=== PATIENT | female | born 1965 | race Caucasian/White ===

== ENCOUNTER 2018-11-20 08:38 | Day surgery (SDC) | payer OTHER ==
[~2018-11-20] VITALS: Ht 157.5 cm; Wt 98.9 kg
[~2018-11-20 08:38] MED LIST: BENAZEPRIL HCL20 MG PO; ESTRACE0.5 MG PO; K-TAB10 MEQ PO; LOTENSIN20 MG PO; NORCO 5-325 TA1 EACH PO; NORVASC10 MG PO
[2018-11-20] MEDS ORDERED: SPIRONOLACTONE25 MG PO (09:09)
--- NOTE | 2018-11-20 11:05 | NUR ---
11/20/18 1105 Klarissa Gilliam 1101 PATIENT ARRIVES TO PACU AWAKE, BUT DROWSY. RESP EVEN AND UNLABORED, ROOM AIR SATS >90%. PATIENT REPOSITIONS SELF TO BACK. PASSING GAS. DENIES PAIN OR NAUSEA.
--- NOTE | 2018-11-21 10:35 | OR ---
[facility] [address] [place], [place] [address] Signed DATE OF OPERATION: 11/20/2018 SURGEON: Ashlie Miranda MD PREOPERATIVE DIAGNOSIS: Diarrhea alternating with constipation most dominantly diarrhea. POSTOPERATIVE DIAGNOSIS: Polyps x2. No evidence of colitis. PROCEDURE PERFORMED: Total colonoscopy to cecum with cold morcellation polypectomy x2 and biopsy of cecum and rectum. ANESTHESIA: Intravenous sedation, fentanyl 150 mcg, and Versed 8 mg. INDICATION: This 53-year-old white woman is a patient of TODD Cosme. 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 She has had complaints of diarrhea alternating with constipation, more dominantly diarrhea, however. She has had no blood per rectum. She has not had evaluation in the past. She does have history of thyroidectomy and cholecystectomy in 2003. Colonoscopy has been recommended on the basis of her symptoms. The risks of bleeding, infection, and perforation related to colonoscopy was reviewed with her. She understands and wished to proceed with colonoscopy. FINDINGS: The prep was quite good. Complete colonoscopy was undertaken to the cecum without question. There were 2 small polyps, one in the cecum, one in the ascending colon, both excised with cold morcellation technique. The remaining colon was normal. Biopsies were obtained of the cecum and rectum to assess for occult colitis. DESCRIPTION OF PROCEDURE: The patient was brought to the endoscopy suite and placed in lateral decubitus position given intravenous sedation to the point of slurred speech and nystagmus. Digital rectal examination was normal. Then, Olympus video colonoscope was passed in the rectum and manipulated throughout the colon ultimately intubating the cecum itself. A small polyp was noted there for which Electronically Signed By: ASHLIE MIRANDA MD 11/21/18 1035 PATIENT NAME: CARMELO DONALDSON OPERATIVE REPORT DATE OF : 67 REPORT #: [id number] PHYSICIAN: ASHLIE MIRANDA MD PCP: CORY DUNLAP REPORT IS CONFIDENTIAL AND NOT TO BE RELEASED WITHOUT AUTHORIZATION [facility] [address] [place], [place] [address] Signed cold morcellation polypectomy was undertaken. Biopsies were taken of the cecum as well though the cecum appeared normal. Otherwise, the scope was carefully withdrawn and at the mid ascending colon, there was another small polyp. These too were excised with cold morcellation technique. Further withdrawal of scope showed no sign of abnormality including the rectum. Biopsies were obtained of the rectum to assess for occult colitis. Retroflexed view was normal. Scope was removed and the patient was taken to recovery room in good condition. CONCLUDING DIAGNOSIS: No clear evidence of lesion to account for diarrhea or constipation at this point. Consideration may be made for a post cholecystectomy type diarrhea, though her cholecystectomy was distant in the past. We will initiate Questran 4 g p.o. q.i.d. tapering to the lowest effective dose, so as to avoid constipation. She will return to see us in 6 weeks and we will review her pathology reports and her clinical course at that time. A bulk agent such as Citrucel may be a consideration as well. MD JEANNIE Zamudio/COREY /[id number] cc: TODD Chew Copies: CORY DUNLAP ~ Electronically Signed By: ASHLIE MIRANDA MD 11/21/18 1035 PATIENT NAME: CARMELO DONALDSON OPERATIVE REPORT DATE OF : 67 REPORT #: [id number] PHYSICIAN: ASHLIE MIRANDA MD PCP: CORY DUNLAP REPORT IS CONFIDENTIAL AND NOT TO BE RELEASED WITHOUT AUTHORIZATION
--- NOTE | 2018-11-23 14:23 | PATH ---
[facility] [address] [facility] [place], [place] [address] Signed SPECIMEN(S): A CECUM SPECIMEN(S): B CECUM POLYP SPECIMEN(S): C COLON NOS POLYP RT SPECIMEN(S): D RECTUM SPECIMEN SOURCE: A. CECUM B. CECUM POLYP C. COLON NOS POLYP RT D. RECTUM CLINICAL HISTORY: Chronic diarrhea. MICROSCOPIC DESCRIPTION: Histologic sections of all submitted blocks are examined by light microscopy. These findings, together with the gross examination, support the pathologic diagnosis. FINAL PATHOLOGIC DIAGNOSIS: A. Cecum, biopsy: - Colonic mucosa with no histopathologic abnormality. B. Colon, cecum, polyp, polypectomy: - Hyperplastic polyp. - Negative for dysplasia or malignancy. C. Colon, polyp "RT," polypectomy: - Fragments of tubular adenoma. - Negative for high-grade dysplasia or malignancy. D. Rectum, biopsy: - Rectal mucosa with hyperplastic mucosal changes. - Negative for dysplasia or malignancy. COMMENT: The biopsies from the cecum and rectum show no cryptitis, crypt abscesses, crypt architectural distortion, basal lymphoplasmacytosis, granulomas, or viral cytopathic changes. LAD:smn:C2NR GROSS DESCRIPTION: Four specimens are received in four containers, labeled "LM." A. The specimen, labeled "LM, cecum biopsy," is received in formalin and consists of two andrews-white soft tissue fragments ranging from 0.1-0.2 cm in PATIENT NAME: CARMELO DONALDSON PATHOLOGY DATE OF : 67 REPORT #: [id number] PHYSICIAN: CHATO PATHOLOGY PCP: CORY DUNLAP REPORT IS CONFIDENTIAL AND NOT TO BE RELEASED WITHOUT AUTHORIZATION [facility] [address] [place], [place] [address] Signed greatest dimension. The specimen is entirely submitted in cassette (A1). B. The specimen, labeled "LM, cecum polyp," is received in formalin and consists of a 0.3 cm greatest dimension irregular andrews-white soft tissue fragment. The specimen is entirely submitted in cassette (B1). C. The specimen, labeled "LM, colon NOS polyp RT," is received in formalin and consists of two andrews-white soft tissue fragments each measuring 0.2 cm in greatest dimension. The specimen is entirely submitted in cassette (C1). D. The specimen, labeled "LM, rectum biopsy," is received in formalin and consists of two andrews-white soft tissue fragments each measuring 0.2 cm in greatest dimension. The specimen is entirely submitted in cassette (D1). AR (under the direct supervision of a pathologist) The Gross Description was prepared using a voice recognition system. The report was reviewed for accuracy; however, sound-alike word errors, addition and/or deletions may occur. If there is any question about this report, please contact Client Services. PERFORMING LABORATORY: The technical component was performed by [employer] [address] [place] [id number] (Shell Coremaker: Deborah Martin MD; CLIA# [id number]). Professional interpretation was performed by [employer], [address] [address] (Shell Coremaker: Ahsan Salinas MD; CLIA# [id number]). Diagnostician: Krista Woods MD Pathologist Electronically Signed 11/23/2018 Copies: ~ PATIENT NAME: CARMELO DONALDSON PATHOLOGY DATE OF : 67 REPORT #: [id number] PHYSICIAN: CHATO MENG PCP: CORY DUNLAP REPORT IS CONFIDENTIAL AND NOT TO BE RELEASED WITHOUT AUTHORIZATION
== END 2018-11-20 11:40 | disposition home or self-care (01) ==
LOC: OPS 08:38 → DS 08:38 → OPS 10:00 → DS 11:30 → OPS 11:40
PROVIDERS: Surgery
PROC: 0DBK8ZZ Excision of Ascending Colon, Via Natural or Artificial Opening Endoscopic (ICD-10-PCS; 2018-11-20)
PROC: 0DBH8ZX Excision of Cecum, Via Natural or Artificial Opening Endoscopic, Diagnostic (ICD-10-PCS; 2018-11-20)
PROC: 0DBP8ZX Excision of Rectum, Via Natural or Artificial Opening Endoscopic, Diagnostic (ICD-10-PCS; 2018-11-20)
PROC: 0DBH8ZZ Excision of Cecum, Via Natural or Artificial Opening Endoscopic (ICD-10-PCS; principal; 2018-11-20 10:00)
DX: D12.2 Benign neoplasm of ascending colon (principal); K63.5 Polyp of colon; K52.9 Noninfective gastroenteritis and colitis, unspecified; K59.00 Constipation, unspecified; I10 Essential (primary) hypertension; K21.9 Gastro-esophageal reflux disease without esophagitis; E03.9 Hypothyroidism, unspecified; E66.9 Obesity, unspecified; Z68.39 Body mass index [BMI] 39.0-39.9, adult; Z88.5 Allergy status to narcotic agent; Z91.018 Allergy to other foods; Z90.49 Acquired absence of other specified parts of digestive tract
CPT/HCPCS: 99153; G0500; J2250; J3010; J7120

== ENCOUNTER 2020-12-16 15:56 | Emergency (ER) | payer BC ==
[~2020-12-16] VITALS: Ht 157.5 cm; Wt 90.7 kg
[~2020-12-16 15:56] MED LIST changes: +SPIRONOLACTONE25 MG PO
[2020-12-16] MEDS ORDERED: ONDANSETRON ODT4 MG PO (17:14)
--- NOTE | 2020-12-17 14:41 | EKG ---
[facility] [address] [facility] [place] [address] Signed Normal sinus rhythm Nonspecific ST and T wave abnormality Abnormal ECG No previous ECGs available Confirmed by ADAM GALLEGOS MD ([id number]) on 12/17/2020 2:41:33 PM Electronically Signed By: ADAM GALLEGOS MD 12/17/20 1441 PATIENT NAME: CARMELO DONALDSON Electrocardiogram DATE OF : 67 PHYSICIAN: ADAM GALLEGOS MD REPORT #: [id number] REPORT IS CONFIDENTIAL AND NOT TO BE RELEASED WITHOUT AUTHORIZATION
== END 2020-12-16 17:24 | disposition home or self-care (01) ==
LOC: ED 15:56
DX: U07.1 COVID-19 (principal); R10.13 Epigastric pain; I10 Essential (primary) hypertension; E03.9 Hypothyroidism, unspecified; Z87.891 Personal history of nicotine dependence; Z88.5 Allergy status to narcotic agent; Z91.040 Latex allergy status; Z79.899 Other long term (current) drug therapy
CPT/HCPCS: 80053; 83690; 85025; 93005; 93010; 96374; 96375; 99284-25; C9803; J1885; J2405; J7030; U0003

== ENCOUNTER 2020-12-23 09:17 | Inpatient (IN) | payer BC ==
[~2020-12-23] VITALS: Ht 157.5 cm; Wt 91.5 kg
[~2020-12-23 09:17] MED LIST changes: +ONDANSETRON ODT4 MG PO
--- OUTSIDE RECORDS SUMMARY | 2020-12-23 09:24 | XMS ---
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 Kimberley has no Care Guidelines for this patient. E.D. VISIT COUNT (12 MO.) [facility] NOTE: Visits indicate total known visits. ED/UCC VISIT TRACKING (12 MO.) 12/23/2020 09:[address] [facility] [place] TYPE: Emergency COMPLAINT: - C+ 12/16/2020 15:[address] 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
[2020-12-23] MEDS ORDERED: LEXAPRO10 MG PO (09:32)
[2020-12-23] MEDS ORDERED: AMLODIPINE BESYL5 MG PO (12:02)
--- NOTE | 2020-12-23 12:13 | NUR ---
55 YEAR OLD FEMALE PATIENT ADMITTED TO CCU VIA STRETCHER UNDER DR. CHAMPAGNE WITH DX OF COVID 19, PNA,HYPOXIA,HYPOK K-2.9. UPON ADMIT PATIENT TO CCU PATIENT IS AWAKE,ALERT, COOPERATIVE. IS ON NRBM WITH SATS HIGH 90'S. AFTER TRANSFER TO BED FROM STRETCHER, O2 SAT DOWN TO MID 80'S. CPAP 100% FIO2 [id number], APPLIED. PATIENT IS ABLE TO TALK IN COMPLETE SENTENCES. ADMISSION PROCESS STARTED.
--- NOTE | 2020-12-23 12:30 | NUR ---
PATENT STATES SHE IS UNABLE TO TAKE PO KCL. DR. CHAMPAGNE AWARE, WILL INFUSE KCL VIA IV PER NEW ORDERS.
--- NOTE | 2020-12-23 13:15 | NUR ---
UP TO COMMODE TO VOID 600 ML OF CLEAR YELLOW URINE, ON CPAP WITH TRANSFER TO COMMODE AND BACK TO BED. HR UP TO 106, INCREASED SHORTNESS OF BREATH NOTED WITH MOVEMENT.
--- NOTE | 2020-12-23 14:00 | NUR ---
YATES PLACED W/O DIFFICULTY WITH RETURN OF CLEAR YELLOW URINE. PATIENT HAS BEEN TAKING SIPS OF CLEAR LIQUIDS, MOSTLY WATER. DENEIS PAIN. ENC TO USE CPAP. PATIENT PREFERS TO USE HIGH-FLOW O2 WITH NRBM. SECOND IV SITE STARTED TO RFA CURRENT IV IS IN LAC AND PATEINT CONTINUES TO BEND HER ARM. K-RIDER NOW INFUSING TO NEW IV SITED.
--- NOTE | 2020-12-23 14:15 | NUR ---
PATIENT NOT ABLE TO TOLERATED IV K+ INFUSNING TO RFA EVEN WITH THE RATE TURNED DOWN TO 75, THERFORE K RIDER INFUSING TO LAC.
--- NOTE | 2020-12-23 15:07 | NUR ---
HAS BEEN ON CPAP, HIGH FLOW NC AT 15 LITERS WITH EITHER OXYMASK OR NRBM. CURRENTLY IS USING NRBM ONLY O2 SATS 90. K RIDER INFUSING ORDERED. HOB IS ELEVATED.
--- NOTE | 2020-12-23 15:20 | NUR ---
BACK ON CPAP AT 80% FIO2, PRESSURE OF 10. YATES CATH PATENT WITH CLEAR YELLOW URINE NOTED.
--- NOTE | 2020-12-23 18:00 | NUR ---
REPOSITIONED. HOB ELEVATED TO TAKE CLEAR LIQUID FOR DINNER. NOW ON HIGH FLOW O2 NC AT 15 L. PATIENT STATES SHE FEEL LIKE SHE IS ABLE TO TOLERATE THE CPAP BETTER THAN SHE WAS EARLIER TODAY.
--- NOTE | 2020-12-23 18:48 | NUR ---
TOOK CLEAR LIQUIDS FAIR, CPAP REAPPLIED.
--- NOTE | 2020-12-23 20:25 | NUR ---
SHIFT REPORT RECEIVED FROM ANGELIA SPANGLER. PT IS ALERT/ORIENTED, REPORTS 4/10 HEADACHE AND EPIGASTRIC PAIN, PRN TYLENOL GIVEN. LUNGS HAVE CRACKLES THROUGHOUT, PT PLACED ON 15L HIGH FLOW NC WITH 15L NRB OVERTOP FOR ORAL CARE AND EVENING MEDS, OTHERWISE SHE IS ON CPAP 10 @ 80%. PT REPORTS SOB AT REST, RESPIRATIONS DO NOT APPEAR LABORED AT THIS TIME. PT HAS MOIST HACKING COUGH, PRN ROBITUSSIN AND TESSALON PERLES GIVEN. HR REGULAR. BOWEL TONES SLIGHTLY HYPOACTIVE, PT REPORTS NAUSEA, PRN ZOFRAN GIVEN. SKIN GROSSLY INTACT WITH EDEMA, CMS INTACT, PERIPHERAL PULSES STRONG. YATES PATENT, UO >QS, CATH CARE PROVIDED. POTASSIUM INFUSION COMPLETED, IV SITES SALINE LOCKED AND INTACT. PT DENIES FURTHER NEEDS AT THIS TIME, CALL LIGHT WITHIN REACH.
--- NOTE | 2020-12-23 23:11 | NUR ---
PT SITTING UP IN BED WATCHING TV. CPAP REMAINS IN PLACE, SETTINGS UNCHANGED. PT REPORTS PAIN IS RESOLVED. DENIES NEEDS AT THIS TIME, CALL LIGHT WITHIN REACH.
--- NOTE | 2020-12-24 | NUR ---
HEARD PT COUGHING FROM NURSE'S STATION, IN TO CHECK ON HER. SHE HAD REMOVED CPAP AND APPLIED HIGH FLOW NC AND NRB, BOTH AT 15L. PRN ROBITUSSIN GIVEN. PT REPORTS THAT SHE IS TIRED BUT UNABLE TO SLEEP AND ALSO REPORTS THAT CPAP MAKES HER FEEL ANXIOUS. DR. CHAMPAGNE NOTIFIED AND ORDERS RECEIVED FOR PRN VISTARIL AND DOSAGE CHANGES MADE TO PRN ROBITUSSIN AND TESSALON PERLES. ASSESSMENT COMPLETED, PT DENIES PAIN. CONTINUES TO HAVE CRACKLES IN LUNGS AND FEELS SOB AT REST. YATES REMAINS PATENT. IV SITES REMAIN INTACT AND SALINE LOCKED. PT ABLE TO PLACE CPAP BACK ON WITHOUT ASSISTANCE. DENIES FURTHER NEEDS AT THIS TIME. CALL LIGHT WITHIN REACH.
--- NOTE | 2020-12-24 01:38 | NUR ---
RECEIVED REPORT FROM CRYSTAL GALAN. pt RESTING IN BED WITH CPAP IN PLACE. EYES CLOSED, RESPIRATIONS REGULAR AND UNLABORED. CALL LIGHT WITHIN REACH.
--- NOTE | 2020-12-24 02:26 | NUR ---
SAT MONITOR OFF, ADJUSTED, pt WOKE BRIEFLY, CALL LIGHT WITHIN REACH. CPAP ON SAT 96%.
--- NOTE | 2020-12-24 03:15 | NUR ---
NOTED DROP IN O2 SAT, CPAP ALARMING. IN TO ASSESS. pt SHIVERING, PROVIDED WARM BLANKETS. pt REPORTED "SINCE I GOT COVID I'VE BEEN DOING THIS AT [facility], I JUST NEED SOME BLANKETS" NO FURTHER REQUESTS AT THIS TIME. HIGH FLOW NASAL CANNULA AND NRB IN PLACE. CALL LIGHT WITHIN REACH.
--- NOTE | 2020-12-24 04:04 | NUR ---
ASSESSED pt. pt REPORTS SHE IS FEELING "BETTER" BED BATH DONE. FRESH LINENS, YATES OUTPUT LIGHT YELLOW URINE. pt EDUCATED ON IMPORTANCE OF PRONING, ASSISTED TO SIDE LAYING POSITION. CPAP IN PLACE, 10 AND 80% FiO2. CRACKLES HEARD THROUGHOUT LUNGS. NO FURTHER REQUESTS AT THIS TIME. CALL LIGHT WITHIN REACH.
--- NOTE | 2020-12-24 05:35 | NUR ---
TITRATED FiO2 ON CPAP TO 60%. pt SATS MAINTAINED MID 90'S. CALL LIGHT WITHIN REACH.
--- NOTE | 2020-12-24 09:00 | NUR ---
ASSESSMENT DONE. OFF CPAP AT THIS TIME FOR CLEAR LIQUID BREAKFAST. WHEN TAKING PO, HIGH-FLOW O2 AND NRBM BOTH AT 15 LITERS PLACED. WHEN TAKING PO AND NEEDS TO LIFT NRBM YE DRING, O2 SATS GO TO LOW AT 78. PATIENT DENIES INCREASED SHORTNESS OF BREATH, NO INCREASE IN WORK OF BREATHING NOTED. HAS BEEN REPOSITIONED FOR BREAKFAST, TO BACK WITH HOB ELEVATED. TAKING ENSURE, JELLO AND JUICE. TALKED WITH PATIENT ABOUT POC, INDICATES UNDERSTANDING.
--- NOTE | 2020-12-24 09:25 | NUR ---
DAYANNA GARCIA (2) AND ROBITUSSIN 10 ML GIVEN FOR COUGH. HAS HARSH LOOSE COUGH.
--- NOTE | 2020-12-24 09:30 | NUR ---
CPAP 60% FIO2, PRESSURE 10, REAPPLIED. PRIOR TO CPAP REAPPLIED. PATIENT IS AWARE OF PLAN TO PRONE SOMETIME BEFORE NOON. IS VERY AGREEABLE.
--- NOTE | 2020-12-24 10:30 | NUR ---
PATIENT TO PRONE POSITION WITH ASSIST OF TWO STAFF. WITH PRONING, SAT UP TO 97 ON 60% FIO2, FIO2 DECREASED TO 50 AT THIS TIME. ENC PATIENT TO REMAIN IN PRONE POSITION FOR AT LEAST 2 HR. POSITION OF BED REVERSE TRENDELENBERG.
--- NOTE | 2020-12-24 12:18 | NUR ---
SLEEPING IN PRONE POSITION. ASSESSMENT HELD AT THIS TIME. RR-18, CPAP SETTINGS PRESSURE OF 10 FIO2 DECREASED TO 40. HR-56,BP AND TEMP NOT DONE PATIENT IS ASLEEP. WILL GIVE LEXAPRO WHEN WAKES.
--- NOTE | 2020-12-24 13:20 | NUR ---
AWAKE. TURNED TO BACK. OFF CPAP, NOW ON HIGH-FLOW NC 15 LITERS WITH NRBM AT 15 LITERS. TOLERATED PRONING VERY WELL. STATES SHE FEELS BETER. ASSESSMENT DONE. LUNCH ORDERED.
--- NOTE | 2020-12-24 14:10 | NUR ---
TOOK LUNCH WELL. AFTER EATING BACK ON CPAP. HOB ELEVATED.
--- NOTE | 2020-12-24 16:20 | NUR ---
ASSESSMENT DONE. PATIENT MORE TALKATIVE. DINNER ORDERED. CPAP AT 55% FIO2 PRESSURE OF 10 ON. PATIENT HAS BEEN USING CPAP MOST OF THE DAY.
--- NOTE | 2020-12-24 18:07 | NUR ---
TOOK DINNER WELL. STATES SHE IS FEELING BETTER.
--- NOTE | 2020-12-24 18:34 | NUR ---
YELLED OUT IN PAIN WHEN ATTEMPING TO REPOSITION PATIENT.
--- NOTE | 2020-12-24 18:51 | NUR ---
ON CPAP AT 55% FIO2 PRESSURE OF 10. HOB ELEVATED, WATCHING TV
--- NOTE | 2020-12-24 19:10 | NUR ---
NO CHANGES, REPORT TO NEXT SHIFT.
--- NOTE | 2020-12-24 19:30 | NUR ---
RECEIVED REPORT FROM ANGELIA SPANGLER. pt RESTING IN BED ON CPAP. DISCUSSED PLAN FOR THE NIGHT. NO NEEDS AT THIS TIME. CALL LIGHT WITHIN REACH.
--- NOTE | 2020-12-24 21:50 | NUR ---
IN TO DO ASSESSMENT. LUNGS CLEAR IN UPPERS, SOME CRACKLES HEARD IN BASES. YATES CARE DONE. BED BATH AND FRESH LINENS. pt HAD MATTED HAIR, TOLERATED 30+ MINUTES OF HAIR CARE WITH HIGH FLOW NASAL CANNULA AT 15L AND 15L NON REBREATHER NECESSARY. pt TALKED IN COMPLETE SENTENCES THE ENTIRE TIME. DENIED FEELING SHORT OF BREATH. RESTING ON LEFT SIDE ON CPAP. CALL LIGHT WITHIN REACH.
--- NOTE | 2020-12-25 01:30 | NUR ---
IN TO DO ASSESSMENT. COUGH MEDICATIONS GIVEN (SEE MAR). pt DENIES OTHER NEEDS AT THIS TIME. NO CHANGES IN ASSESSMENT. CALL LIGHT WITHIN REACH.
--- NOTE | 2020-12-25 04:01 | NUR ---
ROUNDED ON pt. RESTING IN BED, SITTING UP. EYES CLOSED, RESPIRATIONS REGULAR. CPAP IN PLACE. CALL LIGHT WITHIN REACH.
--- NOTE | 2020-12-25 06:00 | NUR ---
CPAP ALARMING. IN TO ASSESS. pt ON 15L NC. pt STATED "I JUST NEEDED A BREAK" SATS LOW 90'S. PRN VISTARIL GIVEN (SEE MAR). WATER PROVIDED, ASSESSMENT DONE. CALL LIGHT WITHIN REACH.
--- NOTE | 2020-12-25 08:03 | NUR ---
WOB OK DEDRA WELL BBS DIMINSHED WITH SCATTER RALES BASES. BVM IN ROOM SUCTION READY AT BEDSIDE.
--- NOTE | 2020-12-25 08:25 | NUR ---
PATIENT AWAKE IN BED, CPAP IN PLACE. VITALS CHARTED. ROOM TIDIED AND BREAKFAST ORDERED. FRESH ICE WATER AND WASHCLOTH PROVIDED, CALL LIGHT IN EASY REACH
--- NOTE | 2020-12-25 08:51 | NUR ---
IN PATIENT'S ROOM FOR ASSESSMENT AND ASSISTANT ENGINEER. PT ON PHONE AT THIS TIME IS 84% ON 15 L HIGH FLOW. PT ABLE TO TAKE MEDS. PT REQUESTING SOETHING FOR ANXIETY AT THIS TIME. PT REPORTS FEELING BETTER COMPARED TO YESTERDAY. PT ABLE TO SCOOT SELF UP HIGHER IN BED ONCE BED IS FLAT. WILL CONTINUE TO MONITOR.
--- NOTE | 2020-12-25 09:02 | NUR ---
DR. CHAMPAGNE IN ROOM TO SEE PATIENT AT THIS TIME. PT AGAIN REPORTS FEELING BETTER OVERALL.
--- NOTE | 2020-12-25 10:38 | NUR ---
THIS DROP WIRE HANGER IN ROOM TO ASSIST PATIENT WITH CPAP AND REPOSITIONING ONTO LEFT SIDE. HUMIDITY ON CPAP TURNED OFF PER PATIENT REQUEST. TEETH BRUSHED AND YATES EMPTIED WELL. PATIENT REQUESTS COUGH SYRUP FOR COUGHING SPELL SHE'S EXPERIENCING AT THIS MOMENT. RN NOTIFIED. CALL LIGHT AND PERSONAL ITEMS IN EASY REACH
--- NOTE | 2020-12-25 13:39 | EKG ---
[facility] [address] [facility] [place], [place] [address] Signed Sinus tachycardia Possible Left atrial enlargement Nonspecific ST and T wave abnormality Abnormal ECG Confirmed by NOELLE CHAMPAGNE MD ([id number]) on 12/25/2020 1:39:46 PM Electronically Signed By: NOELLE CHAMPAGNE MD 12/25/20 1339 PATIENT NAME: CARMELO PALACIOS Electrocardiogram DATE OF : 67 PHYSICIAN: NOELLE CHAMPAGNE MD REPORT #: [id number] REPORT IS CONFIDENTIAL AND NOT TO BE RELEASED WITHOUT AUTHORIZATION
--- NOTE | 2020-12-25 14:08 | NUR ---
DUE TO PRECAUTIONS AM UNABLE TO VISIT. WILL FOLLOW
--- NOTE | 2020-12-25 15:08 | NUR ---
PATIENT HELPED BACK INTO BED AFTER SITTING IN THE CHAIR FOR THE LAST COUPLE OF HOURS SINCE LUNCH TIME. PT HAS BEEN TOLERATING STAYING ON THE HIGH FLOW NC AND THE NRB OVER THE TOP, AND SP02 HAS BEEN IN THE HIGH 90s WITH THIS. PT GIVEN A BATH BEFORE HELPING HER GET INTO BED. PT STILL HAVING A HARSH COUGH TO WHICH SHE IS HAVING SPUTUM PRODUCTION, AND SHE IS SWALLOWING THIS DOWN. PT AGAIN REPORTS FEELING BETTER TODAY THAN SHE HAS THE LAST COUPLE OF DAYS. OF NOTE, PT DOES HAVE URINE LEAKING AROUND CATHETER WHEN SHE COUGHS HARD. PT IN PRONE POSITION OF 1430 AND ENCOURAGED TO STAY IN THIS POSITION LONG SHE CAN TOLERATE. PT CURRENTLY ON 15 L HIGH FLOW WALL NC AND MAINTAINING IN THE LOWER 90s W/O NRB. WILL CONTINUE TO MONITOR.
--- NOTE | 2020-12-25 16:49 | NUR ---
PATIENT CONTINUES TO PRONE AT THIS TIME. DINNER ORDERED. PATIENT HAS REMAINED ON THE 15 L NASAL CANNULA WHILE PRONING AND HAS MAITAINED SP02 IN THE LOW TO MID 90s. CURRENT SP02 IS 95%.
--- NOTE | 2020-12-25 17:32 | NUR ---
PATIENT ABLE TO PRONE FROM [id number], AND STAY ON 15 L HIGH FLOW NASAL CANNULA W/O NRB AND MAINTAIN SP02 HIGHER 90s. PT NOW SITTING UP EATING HER DINNER.
--- NOTE | 2020-12-25 18:53 | NUR ---
PATIENT WANTING TO GET BACK INTO BED AFTER DINNER AND GET INTO PRONE POSITION AND SLEEP FOR A LITTLE WHILE. PATIENT ABLE TO DO THIS, AND JUST STAY ON NC AT 15L HIGH FLOW. SP02 DROPS LOW 86%, BUT RECOVERS FAIRLY QUICK AFTER HAVING NRB AT FACE FOR A FEW MINTUES. WARM BLANKETS GIVEN AND COVERED. SP02 IS NOW 90% ON 15 L NC. WILL CONTINUE TO MONITOR.
--- NOTE | 2020-12-25 19:29 | NUR ---
REPORT RECEIVED, CARE OF PATIENT ASSUMED AT THIS TIME.
--- NOTE | 2020-12-25 20:19 | NUR ---
PT LAYING IN PRONE POSITION. SPO2 =86% ON 15 L HIGH FLOW. HEART RATE IN 60S AT REST. RR=22% SUPPLEMENTAL OXYGEN INCREASED TO GREATER THAN 15 L AT THIS TIME. PT SLEEPING SOUNDLY. CALL LIGHT WITHIN REACH. WILL CONTINUE TO CLOSELY MONITOR.
--- NOTE | 2020-12-25 21:42 | NUR ---
PT REMAINS IN PRONE POSITION. SPO2 = 97% ON 15 L HIGH FLOW NC. RESPIRATIONS EVEN AND UNLABORED. HR 50-60 AT REST. CALL LGT WITHIN REACH. NO ASSESSED NEEDS AT THIS TIME.
--- NOTE | 2020-12-25 23:21 | NUR ---
assessment completed. pt complains of cough. given PRN medication s at this time. assisted pt with repostioning in bed. fine crackles heard in both lung bases upper airways sound clear. respirations even but labored. rr= 25-30 at rest. Call light within reach. Will continue to monitor.
--- NOTE | 2020-12-26 01:45 | NUR ---
PT OXYGEN SATURATIONS DOWN INTO THE 70S. IN ROOM AT THIS TIME, PT OXYGEN OFF. PLACED PT ON 15 L NRB, AND 15 HIGH FLOW NC. PT SATURATIONS BACKUP TO 95% AT THIS TIME. CALL LIGHT WITHIN REACH. WILL CONTINUE TO MONITOR.
--- NOTE | 2020-12-26 03:22 | NUR ---
ASSISTED PT WITH REPOSITIONING IN BED AND ASSESSMENT COMPLETED AT THIS TIME. PT NOW ON RIGHT SIDE ON 15 L HIGH FLOW NC. PT DENIES PAIN, STATES COUGH HAS IMPROVED. CALL LIGHT WITHIN REACH. DENIES FURTHER NEEDS AT THIS TIME
--- NOTE | 2020-12-26 08:15 | NUR ---
Spoke with Ju by phone. She states she lives in a 3 story home, but is only using the main floor. She gets sob with ambulation. 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 She is concerne d about disability insurance, but states she does have temp disability. She states she needs assist with paperwork and I will assist when she gets it. Her Temp. disability insurance rep Albina [phone] called and plan on helping her. Pt plans on dc to home with katherine and her children. Family were sick two weeks ago. he denies needs at this time. May need 02 on dc and discussed how guero blanca works and getting 02 set up. She does not have a preferenece for Dialective. Plans on dc to home when medically cleared.
--- NOTE | 2020-12-26 08:49 | NUR ---
PATIENT RESTING IN BED, WOKE TO VOICE. VITALS CHARTED AND SBA TO CHAIR FOR BREAKFAST. GOWN CHANGED, BACK WIPED DOWN AND HAIR REBRAIDED. CALL LIGHT AND PERSONAL ITEMS IN EASY REACH
--- NOTE | 2020-12-26 09:00 | NUR ---
IN PATIENT'S ROOM FOR ASSESSMENT AND REGULATORY AFFAIRS COORDINATOR. PT STATES SHE WANTS THE PRN MEDS FOR HER COUGH, THEREFORE THESE BROUGHT INTO ROOM AT SAME TIME. PT STATES SHE IS FEELING GOOD OVERALL, AND NOTES SHE WAS ABLE TO JUST STAY ON HIGH FLOW NASAL CANNULA ALL NIGHT W/O NEEDING CPAP SUPPORT. PT CURRENTLY UP IN CHAIR AFTER EATING BREAKFAST, AND IS ON 15 L HIGH FLOW, BUT ALSO HAS THE NRB IN HER HAND AND OCCASIONALLY PUTS IT OVER HER FACE. PATIENT SP02 IS IN THE LOW TO MID 90s. LUNG SOUNDS HAVE FINE CRACKLES THROUGOUT IN POSTERIOR LOBES, CLEAR ANTERIORLY. PT AGREEABLE TO GET INTO PRONE POSITION AGAIN THIS AM. PT NOTED TO BE ABLE TO TALK ON PHONE W/O BEING WINDED. YATES DRAINING CLEAR YELLOW URINE. DENIES PAIN.
--- NOTE | 2020-12-26 11:16 | NUR ---
PATIENT SITTING UP IN CHAIR AND REMAINS ON HIGH FLOW NASAL CANNULA AT 15 L, AND MAINTAINING SP02 FOR THE MOST PART. PT ALSO HAS NRB NEXT TO HER, AND IS STILL OCCASIONALLY PUTTING IT ON. HR IN THE 60s. PT STATES SHE IS GETTING TIRED AND READY TO LAY DOWN, AND WILL BE HELPED INTO PRONE POSITION FOR A FEW HOURS. WILL CONTINUE TO MONITOR.
--- NOTE | 2020-12-26 11:35 | NUR ---
DR. SOLORZANO IN ROOM TO SEE PATIENT AT THIS TIME. PT WANTING TO GET BACK TO BED AND PRONE. LUNCH ORDERED FOR PATIENT.
--- NOTE | 2020-12-26 11:58 | NUR ---
IN PATIENT'S ROOM FOR ASSESSMENT, VITALS, AND MEDS. ASSESSMENT COMPLETE. PATIENT HELPED TO GET INTO PRONE POSITION AND IS NOW ON 15 L NASAL CANNULA. LUNCH ORDER OBTAINED FOR PATIENT BUT PATIENT WANTING TO EAT A LITTLE LATER. CONTINUE TO MONITOR.
--- NOTE | 2020-12-26 13:14 | NUR ---
PATIENT PRONED FROM [id number]. PATIENT NOW BACK UP TO CHAIR AND WEARING NC AT 15 L. PT AGREES THAT SHE MAY NOT NEED HER YATES ANY LONGER. WILL DISCUSS WITH .
--- NOTE | 2020-12-26 13:37 | NUR ---
INFORMED ANGELIA CUEVAS, THAT I AM AVAILABLE IF PT WOULD LIKE TO VISIT OR ABLE TO BY PHONE. SHE ACKNOWLEDGED
--- NOTE | 2020-12-26 15:54 | NUR ---
ASSESSMENT DONE. PATIENT STATES SHE FEELS MUCH BETTER. WILL REAPPLY CPAP AT 55% FIO2 WITH PRESSURE OF 10. IS CURRENTLY ON HIGH FLOW NC AT 15 LITERS WITH O2 SAT 94. PATIENT IS VERY TALKATIVE. NO CHANGES IN ASSESSMENT. STOOL SOFTENER GIVEN. NO RESP DISTRESS NOTED.
--- NOTE | 2020-12-26 17:39 | NUR ---
IN PATIENT'S ROOM AND BROUGHT HER DINNER. PT OFF CPAP AT THIS TIME AND BACK ON NC AT 93%. PT EAGER TO GO HOME AND STATES SHE FEELS SO MUCH BETTER. WILL CONTINUE TO MONITOR.
--- NOTE | 2020-12-26 18:30 | NUR ---
TOOK DINNER WELL. UP TO COMMODE TO EXPELL FORMED LARGE STOOL HEMATEST NEGATIVE. TOLERATED MOVEMENT WELL, BACK TO BED W/O INCIDENT.
--- NOTE | 2020-12-26 20:05 | NUR ---
YATES CATHATER REMOVED PER PT REQUEST AND PULL UPS GIVEN. DISCUSSED GETTING UP TO BSC TO CONSERVE ENERGY. PT DENIES SOB, O2 SATS DECREASED TO 82% WHEN STANDING, IMPROVED TO 90% AFTER 2-3 MINUTES OF REST ON 15L NC.
--- NOTE | 2020-12-26 23:01 | NUR ---
PT RESTING QUIETLY EYES CLOSED. SB/SR WITH RATE 53-62. O2 MAINTAINING AT 93% OR GREATER ON 15L HIGH FLOW NC.
--- NOTE | 2020-12-26 23:49 | NUR ---
PT UP TO BS INDEPENDENLY, INSTRUCTED PT TO CALL FOR ASSISTANCE. O2 DECREASED TO 70% ON 15L HFNC DURING ACTIVITY. SATS IMPROVED TO 88-90 WITHIN 3 MINUTES AFTER RESTING. PT REPORTS PRODUCTIVE COUGH WITH THIN CONSISTANCY. ROBUTUSSIN WITH CODINE AND TESSALON PEARLS ADMINISTERED. PT REORTS IMPROVED ABDOMINAL DISCOMFORT.
--- NOTE | 2020-12-27 01:06 | NUR ---
COUGHING HAS DECREASED SINCE PRN MEDICATIONS ADMINISTERED. PT SLEEPING WITH STABLE VITALS. WILL CONTINUE TO MONITOR.
--- NOTE | 2020-12-27 01:23 | NUR ---
PT O2 SATS 98-100% ON 15L HFNC, O2 WEANED TO 13L WITH SATS MAINTAINED AT 98%. WILL CONTINUE TO WEAN TOLERATED.
--- NOTE | 2020-12-27 04:12 | NUR ---
PT UP TO BSC. O2 SATS DECREASED TO LOW 70s WITH ACTIVITY AND IMPROVE TO GREATER THAN 90 AFTER REST. INSTRUCTED PT TO PRONE AND O2 MAINTAINED AT 97%. HFNC DECREASED FROM 11L TO 9L. HR MAINTAINED IN THE MID TO HIGH 40s WHEN AT REST, PT IS ASYMPTOMATIC. WILL CONTINUE TO MONITOR.
--- NOTE | 2020-12-27 05:51 | NUR ---
PT MAINTAINING O2 GREATER THAN 94% ON 11L HFNC. WILL CONTINUE TO WEAN TOLERATED.
--- NOTE | 2020-12-27 07:31 | NUR ---
REPORT RECEIVED FROM NIGHTSHIFT RN, WILL CONTINUE PLAN OF CARE.
--- NOTE | 2020-12-27 07:45 | NUR ---
Update from RN, pt now on 6l and not using NRB.
--- NOTE | 2020-12-27 09:01 | NUR ---
THIS RN IN TO ASSESS PT AND ADMINISTER SCHEDULED MEDICATIONS. PT LAYING IN BED SLEEPING ON HER RIGHT SIDE ON 6L O2 HIGHFLOW NC. PT AWOKE EASILY AND WAS ALERT AND ORIENTED X4. PT SAT UP AT THIS TIME IN BED, VITALS TAKEN. MEDICATIONS ADMINISTERED AT THIS TIME ALONG WITH PRN TYLENOL FOR GENERAL ACHES, PRN COUGH MEDICATION FOR COUGH, AND VISTARIL FOR ANXIETY (SEE MAR). PT NOTED TO SLOWLY DESATURATE AFTER SITTING UP IN BED AND WAS TITRATED TO 15L HIGHFLOW NC TO MAINTAIN SPO2 AT 91-93%. PT NOW SITTING UP IN BED EATING BREAKFAST AND REPORTS NO NEEDS AT THIS TIME WHEN ASKED. CALL LIGHT IN REACH, BED IN LOWEST POSITION, WILL CONTINUE PLAN OF CARE.
--- NOTE | 2020-12-27 09:35 | NUR ---
THIS RN IN TO CHECK ON PT. PT SITTING UP IN BED ON 15L HIGHFLOW NC, SPO2 93%. PT AWAKE AND ALERT ON THE PHONE AT THIS TIME. PT FINISHED EATING 100% OF HER BREAKFAST. PT REPORTS NO FURTHER NEEDS AT THIS TIME WHEN ASKED, WILL CONTINUE PLAN OF CARE. CALL LIGHT IN REACH, BED IN LOWEST POSITION.
[2020-12-27] MEDS ORDERED: OMEPRAZOLE20 MG PO (09:57)
[2020-12-27] MEDS ORDERED: CLARITIN10 M2 PO (09:58)
[2020-12-27] MEDS ORDERED: MELATIN3 MG PO (09:59)
--- NOTE | 2020-12-27 09:59 | NUR ---
MED REC COMPLETED BY PHARMACY
--- NOTE | 2020-12-27 10:55 | NUR ---
PT SITTING UP IN BED AT THIS TIME AWAKE AND ALERT ON 15L HIGHFLOW NC, SPO2 96-98%. PT DENIES HAVING ANY PAIN OR SOB AT THIS TIME. PT PROVIDED WITH ICE WATER AND SODA PER HER REQUEST AT THIS TIME. PT O2 TITRATED DOWN TO 9L ON THE HIGHFLOW NC. PT SPO2 MAINTAINING AT 96% AND REPORTS NO FURTHER NEEDS WHEN ASKED, WILL CONTINUE PLAN OF CARE. CALL LIGHT IN REACH, BED IN LOWEST POSITION.
--- NOTE | 2020-12-27 12:18 | NUR ---
PT SITTING UP IN BED AT THIS TIME AWAKE AND ALERT ON 9L O2 NC, SPO2 96-97%. DR. SOLORZANO IN AT THIS TIME TO ASSESS PT AND UPDATE ON PLAN OF CARE. PT NOTIFIED AT THIS TIME BY DR. SOLORZANO ON PLANS TO TRANSFER TO THE MEDICAL SURGICAL UNIT. PT VITALS TAKEN AFTERWARDS AND PT ASSESSED (SEE CHART). SCHEDULED IV MEDICATION ADMINISTERED ORDERED AT THIS TIME AND IS NOW INFUSING (SEE MAR). PT REPORTS NO PAIN, DENIES SOB, AND THE NEED FOR PRN COUGH MEDICATION AT THIS TIME. PT OXYGEN TITRATED DOWN TO 6L AT THIS TIME ON THE NC, SPO2 MAINTAINING AT 96-97%. PT REPORTS NO FURTHER NEEDS AT THIS TIME, CALL LIGHT IN REACH, BED IN LOWEST POSITION, WILL CONTINUE PLAN OF CARE.
--- NOTE | 2020-12-27 12:48 | NUR ---
PT LUNCH ARRIVED AND PROVIDED TO PT. PT SITTING UP IN BED ON 6L O2 NC EATING HER LUNCH NOW. PT REPORTS NO FURTHER NEEDS, SPO2 98%, IV MEDICATION INFUSING ORDERED, WILL CONTINUE PLAN OF CARE. CALL LIGHT IN REACH, BED IN LOWEST POSITION.
--- NOTE | 2020-12-27 14:42 | NUR ---
PT SITTING UP IN BED AWAKE AND ALERT ON 6L O2 NC. PT REPORTS NO NEEDS WHEN ASKED AT THIS TIME, SPO2 95%. WILL CONTINUE PLAN OF CARE. CALL LIGHT IN REACH, BED IN LOWEST POSITION.
--- NOTE | 2020-12-27 15:20 | NUR ---
PT SITTING UP IN BED AWAKE AND ALERT AT THIS TIME ON 6L O2 NC, SPO2 93%. VITALS TAKEN AT THIS TIME AND PT ASSESSED. LUNG SOUNDS CLEAR IN UPPER LOBES AND DIMINISHED WITH FINE CRACKLES IN THE BASES BILATERALLY. PT DENIES SHORTNESS OF BREATH AT THIS TIME AND DENIES HAVING PAIN. PRN COUGH MEDICATION GIVEN AT THIS TIME PER PT'S REQUEST (SEE MAR). PT REPORTS NO FURTHER NEEDS AT THIS TIME WHEN ASKED AND IS SITTING UP IN BED WATCHING TV AT THIS TIME. CALL LIGHT IN REACH, BED IN LOWEST POSITION, WILL CONTINUE PLAN OF CARE.
--- NOTE | 2020-12-27 16:20 | NUR ---
PT SITTING UP IN BED AT THIS TIME ON 6L O2 NC, SPO2 94%. PT REPORTS NO NEEDS AT THIS TIME WHEN ASKED, WILL CONTINUE PLAN OF CARE. CALL LIGHT IN REACH, BED IN LOWEST POSITION.
--- NOTE | 2020-12-27 18:11 | NUR ---
PT SITTING UP IN BED ON 6L O2 NC. PT'S DINNER BROUGHT IN AT THIS TIME. PT REPORTS FEELING ANXIOUS AT THIS TIME AND REQUESTED PRN COUGH MEDICATION WELL. PRN VISTARIL AND TESSALON PERLES ADMINISTERED (SEE MAR). PT REPORTS NO FURTHER NEEDS AFTERWARDS AND IS NOW EATING HER DINNER. CALL LIGHT IN REACH, BED IN LOWEST POSITION, WILL CONTINUE PLAN OF CARE.
--- NOTE | 2020-12-27 20:00 | NUR ---
PT REPORTS ANXIETY AND DESIRE TO GET HOME. INCREASED STRESS R/T CONCERNS ABOUT DISABLED DAUGHTER'S LIVING CIRCUMSTANCES. EMOTIONAL SUPPORT PROVIDED. WILL ADMINISTER PRN VISTARIL WHEN ABLE.
--- NOTE | 2020-12-27 22:00 | NUR ---
PT WATCHING TV. NO CONCERNS AT THIS TIME. WILL CONTINUE TO MONITOR.
--- NOTE | 2020-12-27 23:31 | NUR ---
PT'S BP HAS BEEN TRENDING UP WITH LAST BP 159/95. DR. JANG IN UNIT AND NOTIFED. PT'S HOME BP MEDS RESTARTED.
--- NOTE | 2020-12-28 01:39 | NUR ---
PT IS SELF PRONING AND ABLE TO SLEEP AFTER 50MG VISTERAL. CONTINUES TO MAINTAIN O2 SATS AT OR ABOVE 93% ON 6L HFNC. O2 WEANED TO 4.5L, WILL CONTINUE TO MOINITOR AND WEAN TOLERATED.
--- NOTE | 2020-12-28 02:32 | NUR ---
PT O2 SATS DECREASED TO 84% ON 4.5L HFNC WHILE SLEEPING. O2 RETURNED TO 6L AND SATS INCREASED TO 93%.
--- NOTE | 2020-12-28 06:20 | NUR ---
PT RESTING QUIETLY EYES CLOSED. O2 MAINTAINING AT 93-95% ON 6L HFNC.
--- NOTE | 2020-12-28 07:30 | NUR ---
RECEIVED REPORT AT 0700. PT WAS RESTING IN BED.
--- NOTE | 2020-12-28 08:25 | NUR ---
Pt improving per RN update. Will move to the floor when room available.
--- NOTE | 2020-12-28 08:30 | NUR ---
UPPER LOBES CLEAR, LOWER LOBES HAVE OCCASIONAL CRACKLES PRESENT. PT REMAINS ON 6-7L O2 HIGH FLOW NC. PT DOES DESAT WITH ACTIVITY, BUT O2 SATS COME BACK UP QUCKLY SO FAR. ABD SOUNDS PRESENT, PT REFUSED SENNA THIS MORNING SINCE HER LAST BM WAS VERY SOFT. NO PERPH. EDEMA NOTED, OVERALL STRENGTH IS GOOD. WILL CONTINUE TO MONITOR.
--- NOTE | 2020-12-28 10:08 | NUR ---
PT SO FAR HAS HAD BM'S X2 THIS SHIFT. URINE OUTPUT WDL. PT REMAINS ON 6-7L O2 HIGH FLOW NC.
--- NOTE | 2020-12-28 12:20 | NUR ---
UPPER LOBES CLEAR, LOWER LOBES DIMINISHED. PT WANTS TO SHOWER. PT HAS HAD BM'S X3 SINCE START OF SHIFT, URINE OUPUT IS WDL. WILL CONTINUE TO MONITOR.
--- NOTE | 2020-12-28 14:37 | NUR ---
PT AT THIS IS ON 3L O2 HIGH FLOW NC. PT O2 SATS >90%.
--- NOTE | 2020-12-28 16:25 | NUR ---
PT NOW ON 2L O2 NC. UPPER LOBES CLEAR, RLL TIGHT AND DIMINISHED, LLL DIMINISHED WITH MORE AIR MOVEMENT THAN THE RLL. PT OVERALL IS DOING WELL. NO NEW CONCERNS NOTED WITH ASSESSMENT.
--- NOTE | 2020-12-28 16:59 | NUR ---
REPORT RECEIVED FROM ANGELIA SAMUELS. AWAITING PTS ARRIVAL TO MED/SURG.
--- NOTE | 2020-12-28 17:20 | NUR ---
PT ARRIVED FROM CCU BY CHAIR. PT ALERT AND ORIENTED. DENIES PAIN AND NAUSEA. PT REPORTS HER SENSE OF TASTE IS STILL "OFF, VERY SALTY. EVEN WATER TASTES SALTY." IV ASSESSED, WNL, NO S/S OF PHLEBITIS NOTED. PT REPORTS SHE WOULD LIKE TO SHOWER AFTER DINNER, HER DAUGHTER WILL BE BRINGING A "SHOWER BAG." FINE CRACKELS NOTED IN BASES OF LUNGS. PT ABLE TO TAKE DEEP BREATH AND CONTROL COUGH. PT DEMONSTRATES USE OF I.S. REACHING 1000ML X5. PT REMAINS ON 2L O2 BY GA WITH OXGYEN SATUARTIONS ABOVE 90%. PT NOW ON REGULAR NASAL CANULA. PT REPORST HER BOWEL MOVEMENTS HAVE BEEN SOFT TODAY, DENIES DIARRHEA. DINNER DELIVERED TO PT. PT REMAINS UP TO CHAIR. CALL LIGHT WITHIN REACH. CPOX IN PLACE. NO ADDITONAL REQUESTS OR COMPLAINTS AT THIS TIME.
--- NOTE | 2020-12-28 17:20 | NUR ---
REPORT WAS CALLED TO DAYLIN GALAN AT 1700. PT NOW LEFT TO MS #[phone].
--- NOTE | 2020-12-28 18:42 | NUR ---
THIS RN TO ROOM TO CHECK ON PT. PT UP IN ROOM. OXGYEN SATURATIONS 90-94%ON 2L O2 BY NC. PT DENIES PAIN AND NAUSEA. RUG SCRATCHER TO BEDSIDE TO ASSIST PT WITH PREPARING FOR SHOWER. PT DENIES ADDITIONAL REQUESTS OR COMPLAINTS. CALL LIGHT WITHIN REACH. BED RAILS UP.
--- NOTE | 2020-12-28 18:58 | NUR ---
PT TRANSFERED FROM CCU THIS SHIFT HERE FOR COVID 19. PT INDEPENDANT IN ROOM, STEADY ON FEET. PT TOLERATING REGULAR DIET WITH INCREASING INTAKE. PT WEANED TO 2L O2 BY NC THIS SHIFT, TOLERATING WITH OXYGEN SATURTIONS ABOVE 90%. CPOX IN PLACE. PT DEMONSTRATES USE OF I.S. AND IS PARTICIPATING IN PRONING PROTOCOLS. EDUCATION DONE WITH PT REGARDING CONDITION AND PLAN OF CARE. IV REMAINS SALINE LOCKED. SOFT BOWEL MOVEMENTS X3 THIS SHIFT. PT USES CALL LIGHT AND MAKES NEEDS KNOWN.
--- NOTE | 2020-12-28 19:05 | NUR ---
BEDSIDE REPORT FROM DAYLIN RODRIGUES, PT BACK TO BED FROM SHOWER, REQUESTS, UNDERWAER AND NEEDS PULSE OXIMETRY REPLACED. DAYLIN GALAN SAID SHE WOULD GO IN AND PROVIDE THESE CARES.
--- NOTE | 2020-12-28 19:12 | NUR ---
PT FINISHED WITH SHOWER AND BACK TO BED. ROOM CLEANED. CPOX REAPPLIED, OXYGEN SATURATIONS 88% ON 2L O2 BY NC AFTER ACTIVITY. OXGYEN INCREASED TO 4L O2 BY NC TO ALLOW PT TO RECOVER. OXGYEN SATURATIONS ABOVE 90%. PT WATCHING TV. NO ADDITIONAL REQUESTS OR COMPLAINTS. CALL LIGHT WITHIN REACH.
--- NOTE | 2020-12-28 19:33 | NUR ---
UPDATE FROM DAYLIN GALAN PT PLACED ON 4L TO MAINTAIN 90% POST SHOWER
--- NOTE | 2020-12-28 19:49 | NUR ---
PT NOW 96% ON 4L OXYGEN WILL ATTEMPT TO TITRATE MONITORING CLOSE.
--- NOTE | 2020-12-28 23:31 | NUR ---
94% OXYGEN SATURATION AT THIS TIME, ON 4L OXYGEN.
--- NOTE | 2020-12-29 03:24 | NUR ---
PT RESTING IN BED EYES CLOSED RR EVEN, PT NOT ALERT TO THIS RN AT BEDSIDE TO CHANGE TELEMETRY BATTERY. SHE IS CURRENTLY RESTING SUPINE, SHE CHANGES POSITION FREQUENTLY, PRONES ON STOMACH FREQUENT.
--- NOTE | 2020-12-29 05:06 | NUR ---
PT HAS SLEPT WELL OVER SHIFT, REPOSITIONS FREQUENTLY, PT REQUIRED 4L OXYGEN TO MAINTAIN SATURATIONS 90% AFTER SHIFT CHANGE SHOWER, SHE HAS CONTINUED TO REQUIRE 4L OVER THIS SHIFT. SHE REPORTS NO PAIN. 94-96% OXYGEN SATURATION WHILE PRONING. INDEPENDENT IN ROOM.
--- NOTE | 2020-12-29 06:18 | NUR ---
PT ASSESSMENT COMPLETE, V/S COMPLETE. NEW IV SITE STARTED, DUE TO OVERDUE ROTATION POLICY, PT TOLERATED WELL. NO OTHER NEEDS, CALL LIGHT IN REACH
--- NOTE | 2020-12-29 07:23 | NUR ---
REPORT RECEIVED FROM ANGELIA SEAMAN. PT SITTING UP IN BED TALKING ON PHONE. OXYGEN SATURATION 93% ON 3L O3 BY NC. PT DENIES PAIN AND NAUSEA. PT DENIES FEELINGS OF SHORTNESS OF BREATH. BREAKFAST ORDER PLACED. PT DENIES ADDITIONAL REQUESTS OR COMPLAINTS. CALL LIGHT WITHIN REACH. BED RAILS UP.
--- NOTE | 2020-12-29 08:00 | NUR ---
MORNING ASSESSMENT AND MEDICATION DUE. THIS RN TO ROOM. PT SITTING UP IN BED TALKING WITH FRIEND ABOUT HER STAY AT THE [facility]. PT REPORTS "I DIDN'T REALIZE I WAS THIS VONERABLE. i'M JUST SO MUCH BETTER NOW AND I NEED TO GET MOVING. i'M READY TO GO HOME." PT DENIES PAIN AND NAUSEA. IV ASSESSED, WNL. NO S/S OF PHLEBITIS NOTED, FLUSHED AND SALINE LOCKED PER PROTOCOL, ALCOHOL CAP APPLIED. OXGYEN SATURATIONS 91-93% ON 3L O2 BY NC. PT REPORTS A PRODUCTIVE COUGH BUT STATES SHE IS SWALLOWING SPUTUM BECUASE "IT WILL GAG ME IF I TRY TO SPIT IT UP." PT DEMONSTARTES USE OF I.S. REACHING 1000-1300ML. PT DENIES ANY TROUBLES WITH DIARRHEA. STATES HER APPTITE HAS RETURNED AND SHE HAS BEEN FEELING "REALLY HUNGRY." PT CONTINUES TO REPORTS MINOR CHANGES IN TASTE STATING THINGS ARE "STILL SALTY." ICE WATER REFILLED. PT DENIES ADDIITONAL REQUESTS OR COMPLAINTS. MEDICATIONS GIVEN. CALL LIGHT WITHIN REACH. BED RAILS UP.
--- NOTE | 2020-12-29 08:50 | NUR ---
Spoke with Ju. She plans on dc today. Denies needs, except for 02. Would like [facility]. Updated when paper work from completed I will fax. Will need to wait to discharge until we have a time 02 will be delivered. Understanding stated.
--- NOTE | 2020-12-29 09:55 | NUR ---
THIS RN TO ROOM TO CHECK ON PT. PT FINISHED WITH HOME OXYGEN TRIAL STATES IT WENT "GOOD, I'M READY TO GO HOME." OXGYEN SATURATIONS 88% ON 2L O2 BY NC, OXYGEN INCREASED TO 3L O2 BY NC. PT REPORTS SHE HAS BEEN UP AND MOVING AROUND THE ROOM "GETTING READY TO GO HOME." LONG DISTANCE BILLING OPERATORFILI Valdez, AT BEDSIDE. ORANGE JUICE PROVIDED PER PT REQUEST. NO ADDITIONAL REQUESTS OR COMPLAINTS. PT DENIES PAIN AND NAUSEA. CALL LIGHT WITHIN REACH. BED RAILS UP. RT, NA, UPDATED.
--- NOTE | 2020-12-29 09:58 | NUR ---
Patient talked with RN. Patient's vitals, I&Os are complete.
--- NOTE | 2020-12-29 10:47 | NUR ---
THIS RN TO ROOM TO CHECK ON PT. PT WATCHING TV WHILE SITTING UP IN BED. OXYGEN SATUARTIONS REMAIN 90-95% ON 3L O2 BY NC. PT TAUGHT HOW TO ADJUST HER OXGYEN LEVEL WHEN SHE WOULD LIKE TO AMBULATE OR GET UP OUT OF BED. PT DENIES ADDITIONAL REQUESTS OR COMPLAINTS. PT ASSISTED WIHT PLACING LUNCH ORDER. CALL LIGHT WITHIN REACH. BED RAILS UP.
--- NOTE | 2020-12-29 11:33 | NUR ---
Faxed face sheet, RX, o2 qualifier, Ha7p, and note to [place]. Called to update fax has been sent.
--- NOTE | 2020-12-29 12:30 | NUR ---
THIS RN TO ROOM TO CHECK ON PT. PT RESTING IN BED, OXYGEN SATURATION AT 93% ON ROOM AIR. PT DENIES PAIN AND NAUSEA. UPDATED ON PLAN OF CARE. NO ADDITIONAL REQUESTS OR COMPLAINTS. ICE WATER PROVIDED. CALL LIGHT WITHIN REACH.
[2020-12-29] MEDS ORDERED: DEXAMETHASONE6 MG PO (13:12)
--- NOTE | 2020-12-29 14:00 | NUR ---
PT READY FOR DISCHARGE. PT DRESSES SELF, NO ASSISTANCE NEEDED. DISCHARGE INSTRUCTIONS REVIEWED WITH PT. PT VERBALIZES UNDERSTANDING OF HOME OXYGEN USE, QUARENTINE PROCESS, MEDICACTIONS, AND FOLLOW UP. PT STATES HER QUESTIONS HAVE BEEN ANSWSERED. IV DC'D PER PROTOCOL. GAUZE AND COBAN APPLIED. VITAL SIGNS STABLE. PT TRANSFERSE SELF TO WHEELCHAIR. PT REMAINS ON 5L O2 BY LA FOR TRAVELING HOME. PT WHEELED FROM MED/SURG TO MEET HER GRANDDAUGHTER AT ENTRANCE. NO ADDITIONAL REQUESTS OR CONERNS.
== END 2020-12-29 14:00 | disposition home or self-care (01) | DRG 177 ==
LOC: ED 09:17 → CCU 11:45 → MS 12-28 17:20
PROVIDERS: ADMIT Internal Medicine; ATTEND Internal Medicine
PROC: 5A09457 Assistance with Respiratory Ventilation, 24-96 Consecutive Hours, Continuous Positive Airway Pressure (ICD-10-PCS; principal; 2020-12-23)
PROC: XW033E5 Introduction of Remdesivir Anti-infective into Peripheral Vein, Percutaneous Approach, New Technology Group 5 (ICD-10-PCS; 2020-12-23)
PROC: 3E0333Z Introduction of Anti-inflammatory into Peripheral Vein, Percutaneous Approach (ICD-10-PCS; 2020-12-23)
PROC: 5A0945A Assistance with Respiratory Ventilation, 24-96 Consecutive Hours, High Flow/Velocity Cannula (ICD-10-PCS; 2020-12-26)
DX: U07.1 COVID-19 (principal); J12.82 Pneumonia due to coronavirus disease 2019; J96.01 Acute respiratory failure with hypoxia; E87.6 Hypokalemia; F40.240 Claustrophobia; E89.0 Postprocedural hypothyroidism; F32.A Depression, unspecified; I10 Essential (primary) hypertension; Z90.710 Acquired absence of both cervix and uterus; Z90.721 Acquired absence of ovaries, unilateral; Z98.51 Tubal ligation status; Z90.49 Acquired absence of other specified parts of digestive tract; Z98.890 Other specified postprocedural states; Z88.5 Allergy status to narcotic agent; Z91.040 Latex allergy status; Z79.899 Other long term (current) drug therapy
CPT/HCPCS: 36600; 71045; 71260; 80053; 82803; 83735; 84484; 85025; 93005; 93010; 94640; 94660; 94761; A9270; C9113; J1100; J1650; J1885; J2405; J3480; J7050; J7060; Q0177; Q9967

== ENCOUNTER 2021-08-17 14:00 | Emergency (ER) | payer BC ==
[~2021-08-17] VITALS: Ht 157.5 cm; Wt 90.7 kg
[~2021-08-17 14:00] MED LIST changes: +AMLODIPINE BESYL5 MG PO; +CLARITIN10 M2 PO; +DEXAMETHASONE6 MG PO; +LEXAPRO10 MG PO; +MELATIN3 MG PO; +OMEPRAZOLE20 MG PO
--- OUTSIDE RECORDS SUMMARY | 2021-08-17 14:02 | XMS ---
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 Care History Medical/Surgical 12/25/2020 [facility] - Patient is currently established with [facility]. If patient is seen in the ED during business hours. Please contact CHWs at [facility]. Care Recommendation: If this patient has had 5 or more Emergency Department visits in the last 12 months.\T\nbsp; Patient will require education on the scope and purpose of the ED as an acute care provider not a Primary Care Provider and should not be utilized for chronic conditions.\T\nbsp; These are guidelines and the provider should exercise clinical judgment when providing care. 12/25/2020 [facility] No follow up with PCP scheduled at this time as patient is in CCU. E.D. VISIT COUNT (12 MO.) [address] [facility] TOTAL 5 NOTE: Visits indicate total known visits. ED/UCC VISIT TRACKING (12 MO.) 08/17/2021 14:00 [facility] TYPE: Emergency COMPLAINT: - FLU SYMPTOMS 08/15/2021 17:39 [facility] TYPE: Emergency COMPLAINT: - FLU SYMPTOMS 03/06/2021 19:[address] [facility]: Emergency COMPLAINT: - RT LEG SWELLING 12/23/2020 09:18 [facility] TYPE: Emergency COMPLAINT: - C+ 12/16/2020 15:57 [facility] TYPE: Emergency COMPLAINT: - DIFFICULTY BREATHING, POSSIBLE COVID SYMPTOMS DIAGNOSES: - Essential (primary) hypertension - Allergy status to narcotic agent - Epigastric pain - Latex allergy status - Personal history of nicotine dependence - Other long-term (current) drug therapy - COVID-19 - Hypothyroidism, unspecified INPATIENT VISIT TRACKING (12 MO.) 12/23/2020 11:[address] [facility] TYPE: Medical Surgical COMPLAINT: - COVID PNEUMONIA DIAGNOSES: - Hypokalemia - Claustrophobia - Other specified postprocedural states - Claustrophobia - Acquired absence of both cervix and uterus - Latex allergy status - Acute respiratory failure with hypoxia - Other specified postprocedural states - Hypokalemia - Essential (primary) hypertension - Allergy status to narcotic agent - Acquired absence of other specified parts of digestive tract - Postprocedural hypothyroidism - Acute respiratory failure with hypoxia - Tubal ligation status - Other terminal manager (current) drug therapy - Other long-term (current) drug therapy - Tubal ligation status - Postprocedural hypothyroidism - Allergy status to narcotic agent - DEPRESSION, UNSPECIFIED - COVID-19 - Acquired absence of other specified parts of digestive tract - DEPRESSION, UNSPECIFIED - Depression, unspecified - Acquired absence of both cervix and uterus - Latex allergy status - Essential (primary) hypertension - Acquired absence of ovaries, unilateral - Acquired absence of ovaries, unilateral - Pneumonia due to coronavirus disease 2018 [email or web address]
[2021-08-17] MEDS ORDERED: CELECOXIB200 MG PO (14:17)
[2021-08-17] MEDS ORDERED: DICLOFENAC SOD100 G1 TOP (14:17)
[2021-08-17] MEDS ORDERED: ROPINIROLE HC0.25 MG PO (14:17)
== END 2021-08-17 19:19 | disposition home or self-care (01) ==
LOC: ED 14:00
DX: U07.1 COVID-19 (principal); I10 Essential (primary) hypertension; Z87.891 Personal history of nicotine dependence; Z88.5 Allergy status to narcotic agent; Z91.040 Latex allergy status; Z79.899 Other long term (current) drug therapy
CPT/HCPCS: 99283

== ENCOUNTER 2022-07-09 11:35 | Emergency (ER) | payer BC ==
[~2022-07-09] VITALS: Ht 157.5 cm; Wt 90.7 kg
[~2022-07-09 11:35] MED LIST changes: +CELECOXIB200 MG PO; +DICLOFENAC SOD100 G1 TOP; +ROPINIROLE HC0.25 MG PO
[2022-07-09 13:43] VITALS: BP 157/88
== END 2022-07-09 13:43 | disposition home or self-care (01) ==
LOC: ED 11:35
DX: S92.122A Displaced fracture of body of left talus, initial encounter for closed fracture (principal); X50.1XXA Overexertion from prolonged static or awkward postures, initial encounter; I10 Essential (primary) hypertension; Z87.891 Personal history of nicotine dependence; Z88.5 Allergy status to narcotic agent; Z91.040 Latex allergy status; Z79.899 Other long term (current) drug therapy
CPT/HCPCS: 73610; 73630